=== PATIENT | male | born 1935 | race Caucasian/White ===

== ENCOUNTER 2017-08-22 21:52 | Emergency (ER) | payer MEDICARE, MEDICAID ==
[~2017-08-22] VITALS: Ht 157.5 cm; Wt 64.4 kg
[2017-08-22 22:05] VITALS: BP_SYST 162
[2017-08-22] MEDS ORDERED: HYDR25TA4 PO (23:47)
[2017-08-22] MEDS ORDERED: GLU500 PO (23:47)
[2017-08-22] MEDS ORDERED: LORA10TA7 PO (23:47)
[2017-08-22] MEDS ORDERED: FERR-57 PO (23:47)
[2017-08-22] MEDS ORDERED: PRAV20TA PO (23:47)
[2017-08-23 00:02] LABS: ANION GAP 6 (5-15); BASOPHILS % (AUTO) 0.3 % (0.0-2.0); CALCIUM 8.5 mg/dL (8.4-11.0); CHLORIDE 92 mmol/L (98-107); EOSINOPHILS # (AUTO) 0.1 K/uL (0.0-0.4); EOSINOPHILS % (AUTO) 1.2 % (0.0-4.0); GLUCOSE 150 mg/dL (70-99); HEMATOCRIT 26.8 % (36-54); HEMOGLOBIN 9.1 g/dL (14.0-18.0); LYMPHOCYTES # (AUTO) 1.7 K/uL (1.0-5.5); LYMPHOCYTES % (AUTO) 18.6 % (20.5-51.5); MEAN CORPUSCULAR HEMOGLOBIN 25 pg (27-31); MEAN CORPUSCULAR HGB CONC 34 % (32-36); MEAN CORPUSCULAR VOLUME 75 fL (79.0-98.0); MONOCYTES % (AUTO) 11.2 % (1.7-9.3); NEUTROPHILS # (AUTO) 6.6 K/uL (1.8-7.7); NEUTROPHILS % (AUTO) 68.7 % (40.0-70.0); PLATELET COUNT (AUTO) 485 K/uL (130-430); POTASSIUM 4.9 mmol/L (3.5-5.1); RED BLOOD CELL COUNT(AUTO) 3.58 MIL/uL (4.2-6.2); RED CELL DISTRIBUTION WIDTH 12.9 % (9.0-15.0); SODIUM SERUM 124 mmol/L (136-145); UREA NITROGEN, BLOOD 18 mg/dL (8-21); WHITE BLOOD COUNT (AUTO) 9.4 K/uL (4.8-10.8)
[2017-08-23 00:08] LABS: ALANINE AMINOTRANSFERASE 44 U/L (12-78); ALBUMIN 2.9 g/dL (3.4-4.8); ASPARTATE AMINOTRANSFERASE 29 U/L (10-37); LIPASE 165 U/L (73-393); TOTAL BILIRUBIN 0.2 mg/dL (0.0-1.0)
[2017-08-23 00:13] LABS: BILIRUBIN,URINE NEGATIVE (NEGATIVE); BLOOD, URINE 1+ (NEGATIVE); CLARITY/URINE CLEAR (CLEAR); COLOR,URINE YELLOW (YELLOW); GLUCOSE,URINE NEGATIVE (NEGATIVE); KETONES,URINE NEGATIVE (NEGATIVE); LEUKOCYTE ESTERASE ,URINE NEGATIVE (NEGATIVE); NITRITE, URINE NEGATIVE (NEGATIVE); PH,URINE 5.5 (5.0-8.0); PROTEIN URINE NEGATIVE (NEGATIVE); UROBILINOGEN,URINE 0.2 (0.2-1.0)
[2017-08-23 00:46] LABS: BACTERIA,URINE FEW /HPF (None Seen); WBC,URINE 0-3 /HPF (0-3)
[2017-08-23] MEDS: ASPIRIN 81 MG TAB.CHEW PO ONE (00:59)
[2017-08-23 01:28] VITALS: BP_SYST 150
== END 2017-08-23 01:28 | disposition short-term general hospital (02) ==
LOC: SED 21:52
DX: I21.3 ST elevation (STEMI) myocardial infarction of unspecified site (principal); I10 Essential (primary) hypertension; Z86.2 Personal history of diseases of the blood and blood-forming organs and certain disorders involving the immune mechanism; Z79.899 Other long term (current) drug therapy
CPT/HCPCS: 36415; 80053; 81000-TC; 83690-TC; 84484; 85025; 93005; 99285